=== PATIENT | male | born 1945 | race Caucasian/White ===

== ENCOUNTER → 2020-10-26 | Outpatient (CLI) | payer MEDICARE, OTHER ==
--- NOTE | 2020-10-26 11:57 | RAD ---
EXAM: Left lower extremity venous Doppler sonogram. HISTORY: Pain and swelling. Dog scratch. TECHNIQUE: Sol scale and color Doppler sonographic evaluation of the left lower extremity veins with spectral waveform analysis was performed. FINDINGS: There is normal color flow, normal compressibility and there are normal spectral waveforms in the common femoral, superficial femoral, popliteal, posterior tibial and greater saphenous veins. IMPRESSION: No Doppler evidence of lower extremity deep venous thrombosis. Electronically signed by: Cate Amaral MD (10/26/2020 11:55 AM) [id number]
== END ==
LOC: US 11:20
PROVIDERS: ATTEND Family Medicine
DX: S71.152A Open bite, left thigh, initial encounter (principal); I82.412 Acute embolism and thrombosis of left femoral vein; W54.0XXA Bitten by dog, initial encounter; Y93.89 Activity, other specified; Y92.89 Other specified places as the place of occurrence of the external cause; Y99.8 Other external cause status
CPT/HCPCS: 93971

== ENCOUNTER → 2021-03-20 | Outpatient (CLI) | payer MEDICARE, OTHER ==
--- NOTE | 2021-03-20 14:39 | RAD ---
EXAM: Lumbar spine CT without contrast. HISTORY: Pain. TECHNIQUE: Computed tomographic images of the lumbar spine were obtained without contrast. Multiplana r reformatting was performed. *One or more of the following individualized dose reduction techniques were utilized for this examina tion: 1. Automated exposure control. 2. Adjustment of the mA and/or kV according to patient size. 3. Use of iterative reconstruction technique. COMPARISON: None. FINDINGS: There is 4 mm grade 1 anterolisthesis of L5 on S1. There is mild lumbar hyperlordosis. Ther e is multilevel endplate remodeling. There are bridging and partially bridging anterior osteophytes t hroughout the thoracic and lumbar levels, the appearance of which favors diffuse idiopathic skeletal hyperostosis. There is multilevel facet arthropathy. There is no suspicious lytic or sclerotic osseou s lesion. There is no acute or subacute fracture. There is a patulous distal esophagus or tiny hiatal hernia. There is no pulmonary infiltrate or pleur al effusion on the [id number]-eu-nrjz. There is a 3.6 cm simple cyst within the left kidney. There are scl erotic lesions within the right iliac bone measuring up to 1.0 cm. There is also a 4 mm sclerotic les ion within the left iliac bone. There is degenerative subchondral sclerosis and spurring involving th e sacroiliac joints. There is a small sclerotic lesion within the left aspect of the L1 vertebral bod y and left posterior aspect of the L4 vertebral body. At L1-L2, there is a disc bulge and endplate remodeling. There is mild right facet arthropathy. There is mild right foraminal stenosis. At L2-L3, there is a disc bulge. There is mild left facet arthropathy. There is mild left foraminal s tenosis. At L3-L4, there is a disc bulge. There is epvr-ao-[id number] bilateral facet arthropathy. There is mild bilateral foraminal stenosis. At L4-L5, there is a disc bulge and endplate remodeling. There is severe right greater than left face t arthropathy. There is mild left greater than right foraminal stenosis. There is mild central canal stenosis. At L5-S1, there is a disc bulge and endplate remodeling. There is severe right facet arthropathy. The re is grade 1 anterolisthesis. There is no stenosis. IMPRESSION: 1. Multilevel degenerative change involving the lumbar spine, described in detail above. This is asso ciated with mild foraminal and central canal stenosis at the aforementioned levels. No severe stenosi s is seen. There is no acute finding. 2. Bridging and partially bridging bulky anterior osteophytes at the lower thoracic and lumbar levels , the appearance of which favors diffuse idiopathic skeletal hyperostosis. 3. Grade 1 anterolisthesis of L5 on S1. 4. Multiple small sclerotic lesions within the vertebral bodies and bony pelvis. If there is no histo ry of primary malignancy, these are likely bone islands. There is a history of primary malignancy, os seous metastatic disease is not excluded. Electronically signed by: Cate Amaral MD (03/20/2021 2:36 PM) [facility]
== END ==
LOC: CT 13:35
PROVIDERS: ATTEND Family Medicine
DX: M47.817 Spondylosis without myelopathy or radiculopathy, lumbosacral region (principal); M51.27 Other intervertebral disc displacement, lumbosacral region; M43.17 Spondylolisthesis, lumbosacral region; M25.78 Osteophyte, vertebrae; M48.061 Spinal stenosis, lumbar region without neurogenic claudication
CPT/HCPCS: 72131

== ENCOUNTER → 2021-05-23 | Outpatient (CLI) | payer MEDICARE, OTHER ==
--- NOTE | 2021-05-24 08:42 | RAD ---
SITE ID: [id number] EXAMINATION: NM BONE SCAN WHOLE BODY - Whole body bone scan. Technique: After the intravenous administration of 26 mCi of Technetium 99m MDP, whole body delayed p hase bone scan images were obtained with lateral views of the head and neck and the chest regions. Indication: 76 years Male bone lesions seen on CT scan of the lumbar spine Findings: There is a pattern of increased radiotracer uptake seen in the spine at multiple levels within the ryder mbar spine region with the mild to moderate intensity. When correlating catheter the areas of uptake with the CT scan it is most likely correlating with degenerative activity in not particularly related to the small sclerotic lesion seen at the L1 level. There is also mild to moderate increased activit y around the sternum, shoulders, and cervical spine probably degenerative. There is also symmetric mi ld increased activity around the proximal tibia bilaterally. No intense foci of increased uptake is seen in a pattern to suggest underlying neoplasm or metastatic disease. Symmetric activity in the kidneys and normal activity in bladder seen. IMPRESSION: Pattern of uptake is in favor of degenerative etiology for bone lesion seen on CT scan. Electronically signed by: Joe Connor MD (05/24/2021 8:40 AM) [id number]
== END ==
LOC: NM 10:10
PROVIDERS: ATTEND Family Medicine
DX: C79.51 Secondary malignant neoplasm of bone (principal)
CPT/HCPCS: 78306; A9503

== ENCOUNTER 2021-07-06 17:17 | Emergency (ER) | payer MEDICARE, OTHER ==
[~2021-07-06] VITALS: Ht 167.6 cm; Wt 67.8 kg
--- NOTE | 2021-07-06 17:42 | PHYS DOC ---
General Adult EDM: Chief Complaint: MECHANICAL FALL HPI: HPI: Patient is a 76-year-old male who presents to the emergency department with family for complaints of a fall that occurred on Friday. Patient denies hitting his head, loss of consciousness, blood thinner use. Patient does report that he hit his left upper back on a lamp. Patient is also complaining of a productive cough x2 weeks. He reports that he has a history of asthma and produces excessive mucus and a cough can be chronic for him. Daughter is concerned because she states that he is not acting normally. She but she cannot expand on how he is not acting normally. She reports that he is answering questions appropriately for his baseline. Patient denies any current pain, shortness of breath, chest pain, fevers. (MESSI DONG APRN) Review of Systems: Review of Systems: Constitutional: negative unless reported in HPI Eyes: negative unless reported in HPI HENT: negative unless reported in HPI Respiratory: negative unless reported in HPI Cardiovascular: negative unless reported in HPI GI: negative unless reported in HPI : negative unless reported in HPI Musculoskeletal: negative unless reported in HPI Integument: negative unless reported in HPI Neurologic: negative unless reported in HPI Endocrine: negative unless reported in HPI Lymphatic: negative unless reported in HPI Psychiatric: negative unless reported in HPI (MESSI DONG APRN) Physical Exam: PE: Constitutional: Well developed, well nourished, no acute distress, non-toxic appearance. [] HENT: Normocephalic, atraumatic, bilateral external ears normal, oropharynx moist, no oral exudates, nose normal. [] Eyes: PERRL, EOMI, conjunctiva normal, no discharge. [] Neck: Normal range of motion, no bony spinal tenderness, supple, no stridor. [] Cardiovascular:Heart rate tachycardic rhythm, no murmur [] Lungs & Thorax: Bilateral breath sounds clear to auscultation [] Abdomen: Bowel sounds normal, soft, no tenderness, no masses, no pulsatile masses. [] Skin: Warm, dry, no erythema, no rash. [] Back: No bony spinal tenderness, no shunt, ecchymosis noted to left upper thoracic region of back Extremities: No tenderness, no cyanosis, no clubbing, ROM intact, no edema. [] Neurologic: Alert and oriented X 3, normal motor function, normal sensory function, no focal deficits noted. [] Psychologic: Affect normal, judgement normal, mood normal. [] (MESSI DONG APRN) Current Patient Data: Labs: Laboratory Tests Test 07/06/21 18:16 White Blood Count 14.6 x10^3/uL Red Blood Count 5.15 x10^6/uL Hemoglobin 16.1 g/dL Hematocrit 48.2 % Mean Corpuscular Volume 94 fL Mean Corpuscular Hemoglobin 31 pg Mean Corpuscular Hemoglobin Concent 33 g/dL Red Cell Distribution Width 13.8 % Platelet Count 314 x10^3/uL Neutrophils (%) (Auto) 85 % Lymphocytes (%) (Auto) 9 % Monocytes (%) (Auto) 5 % Eosinophils (%) (Auto) 0 % Basophils (%) (Auto) 0 % Neutrophils # (Auto) 12.4 x10^3uL Lymphocytes # (Auto) 1.3 x10^3/uL Monocytes # (Auto) 0.8 x10^3/uL Eosinophils # (Auto) 0.0 x10^3/uL Basophils # (Auto) 0.0 x10^3/uL Sodium Level 137 mmol/L Potassium Level 3.6 mmol/L Chloride Level 94 mmol/L Carbon Dioxide Level 30 mmol/L Anion Gap 13 Blood Urea Nitrogen 17 mg/dL Creatinine 1.5 mg/dL Estimated GFR (Cockcroft-Gault) 45.6 BUN/Creatinine Ratio 11 Glucose Level 188 mg/dL Calcium Level 9.4 mg/dL Total Bilirubin 0.9 mg/dL Aspartate Amino Transf (AST/SGOT) 50 U/L Alanine Aminotransferase (ALT/SGPT) 65 U/L Alkaline Phosphatase 105 U/L Troponin I High Sensitivity 10 ng/L Total Protein 8.1 g/dL Albumin 3.6 g/dL Albumin/Globulin Ratio 0.8 Influenza Type A (Rapid) Negative Influenza Type B (Rapid) Negative SARS-CoV-2 Antigen (Rapid) Negative Current Medications Medications (Trade) Dose Ordered Sig/Troy Route PRN Reason Start Time Stop Time Status Last Admin Dose Admin Sodium Chloride 1,000 ml @ 1,000 mls/hr 1X ONCE IV 07/06/21 17:45 07/06/21 18:44 DC 07/06/21 17:45 (MESSI DONG APRN) EKG: EKG: EKG performed by ER staff at 1811 shows sinus tach with a rate of 97 with a bundle branch block, QTC is 449, no STEMI read by Dr. Abdullahi at 1814 [] (MESSI DONG TRANSITIONAL CARE LIAISON) Radiology/Procedures: Radiology/Procedures: []PROCEDURE: THORACIC SPINE 3V Study: XR THORACIC SPINE 3VIEWS Indication: Fall. Comparison: None. Findings: Flowing prevertebral osteophytes throughout the thoracic spine as well as seen to involve the cervical and partially imaged lumbar spine. Smooth thoracic kyphosis which is mildly exaggerated. No appreciable listhesis. No concerning vertebral body height loss. Limited evaluation of the posterior elements on account of osseous overlap. The lungs are incompletely evaluated but no focal airspace abnormality is identified or apical pneumothorax. Impression: 1. No radiographic evidence for an acute thoracic spine fracture. If there is pinpoint tenderness CT or MRI would be more sensitive. 2. Diffuse idiopathic skeletal hyperostosis. Mild exaggeration of thoracic kyphosis. Electronically signed by: KWAME DOUGLAS MD (07/06/2021 6:20 PM) [facility] DICTATED AND SIGNED BY: KWAME DOUGLAS MD DATE: 07/06/211816 CC: RADHA CEVALLOS MD; SAM ABDULLAHI MD; MESSI DONG APRN ~MTH0 0 REASON: fall PROCEDURE: CT HEAD AND CERVICAL SPINE WO STUDY: CT head and cervical spine without contrast INDICATION: Fall. COMPARISON: None. TECHNIQUE: Axial CT imaging through the head and cervical spine without the use of intravenous contrast. Sagittal and coronal reformats were obtained. One or more of the following individualized dose reduction techniques were utilized for this examination: 1. Automated exposure control 2. Adjustment of the mA and/or kV according to patient size 3. Use of iterative reconstruction technique. FINDINGS: CT head: No acute intracranial hemorrhage. Sol-white matter differentiation is maintained. No localized mass effect, midline shift or hydrocephalus. Intact calvarium. Normally aerated mastoid air cells and partially imaged paranasal sinuses. CT cervical spine: Bulky flowing prevertebral ossification throughout the cervical spine and continuing along the visualized thoracic spine. The only level with discontinuity is at C2-C3. There are no findings that would indicate this discontinuity to be acute. No abnormal widening of the C2-C3 disc space or listhesis. Widening at the anterior aspect of the C5-C6 disc space however with intact prevertebral osteophytes and no localized edema/hemorrhage of the prevertebral soft tissues. Several levels exhibit posterior element fusion mainly at the upper thoracic spine but also partly at C7-T1. Mild posterior longitudinal ligament mineralization from C2 through C4. Background mostly mild facet arthrosis greatest on the left at C2-C3. Multilevel uncovertebral joint hypertrophy. Disc osteophyte complex at C3-C4. Osseous neur al foraminal narrowing is mild to borderline moderate such as on the right at C5-C6 and on the right at C2-C3. Central canal stenosis favored greatest at C3- C4 more so than C4-C5 but not fully evaluated. Considering the absence of intrathecal contrast this does not appear to be severe. Groundglass and partly nodular densities at the upper lungs. No apical pneumothorax. IMPRESSION: CT head: 1. No acute intracranial abnormality by CT. CT cervical spine: 1. Rigid cervical and visualized thoracic spine in the setting of diffuse idiopathic skeletal hyperostosis as described in the body of the report. This configuration places the patient at risk for fractures from mild trauma however no fracture is identified or traumatic malalignment. No paraspinous edema/ hematoma to indicate an occult fracture. 2. Multilevel degenerative changes with mostly mild and moderate osseous neural foraminal stenosis. Central canal stenosis favored greatest at C3-C4 but this does not appear to be severe. 3. Faint groundglass and partly nodular infiltrates at the upper lungs. The appearance is nonspecific and could be a mild active infectious or inflammatory process. Electronically signed by: KWAME DOUGLAS MD (07/06/2021 6:17 PM) [facility] DICTATED AND SIGNED BY: KWAME DOUGLAS MD DATE: 07/06/211803 CC: RADHA CEVALLOS MD; SAM ABDULLAHI MD; MESSI DONG TRANSITIONAL CARE LIAISON ~MTH0 0 PROCEDURE: PORTABLE CHEST 1V Exam: Chest one view INDICATION: Fall TECHNIQUE: Frontal view of the chest Comparisons: None FINDINGS: The cardiomediastinal silhouette and pulmonary vessels are within normal limits. Subtle patchy bilateral airspace disease. No pleural effusion. IMPRESSION: Patchy bibasilar airspace disease favored infectious or inflammatory in etiology. Electronically signed by: Faith Clark MD (07/06/2021 6:08 PM) [facility] DICTATED AND SIGNED BY: FAITH CLARK MD DATE: 07/06/21 180 CC: RADHA CEVALLOS MD; MESSI DONG APRN ~MTH0 0 (MESSI DONG APRN) Heart Score: C/O Chest Pain: No Risk Factors: Risk Factors: DM, Current or recent (<one month) smoker, HTN, HLP, family history of CAD, obesity. Risk Scores: Score 0 - 3: 2.5% MACE over next 6 weeks - Discharge Home Score 4 - 6: 20.3% MACE over next 6 weeks - Admit for Clinical Observation Score 7 - 10: 72.7% MACE over next 6 weeks - Early Invasive Strategies (MESSI DONG APRN) Course & Med Decision Making: Course & Med Decision Making Pertinent Labs and Imaging studies reviewed. (See chart for details) [] Patient presents to the emergency department for multiple complaints. He reports that he fell on Friday. He did not hit his head, no loss of consciousness, no blood thinner use. Patient denies any pain from the fall but reports hitting his left upper back and he does have a bruise to that area. Family is also concerned that patient has had a productive cough x2 weeks. Patient reports he has a history of asthma and excessive mucus production and occasionally does have a cough. Niece states that patient is not acting appropriately but cannot expand on how the patient is not acting appropriately and states that how he is communicating with nursing staff currently is appropriate for him, patient is alert and oriented and answering questions appropriately. When asking his niece how she thought he was confused she states because he said he hit his back on a tree but fell in his bedroom, patient reports that he was telling his niece that he hit his back on a tree lamp not an actual tree. Work-up in the ER consisted of blood work, EKG, chest x-ray to rule out pneumonia, CT imaging of head and neck due to the fall and imaging of thoracic spine due to ecchymosis. CT imaging of head and neck showed no acute findings. Thoracic spine x-ray showed no acute findings. Patient's chest x-ray did not show any pneumonia. Patient did have leukocytosis. Patient mild elevation in his creatinine, he was treated with IV fluids. Urinalysis did show urinary tract infection. Following treatment in the emergency department, patient's vital signs are stable. He is in no acute respiratory distress and he is not hypoxic or requiring any supplemental oxygen. Patient does have a history of reversible asthma he states. He states that he used to take inhalers but does not have any at home. Patient will be discharged home with an antibiotic to treat his pneumonia and albuterol inhaler. Patient is advised to follow-up with his primary care provider soon as possible. I discussed with patient all findings and diagnostic testing as well as the need to follow-up with PCP for further evaluation and treatment or return to the ER if any new or worsening symptoms. Strict return precautions were also discussed at length. Patient voiced understanding and agreement with the plan. Patient is hemodynamically stable at the time of disposition. (MESSI DONG APRN) Dragon Disclaimer: Dragon Disclaimer: This electronic medical record was generated, in whole or in part, using a voice recognition dictation system. (MESSI DONG APRN) Departure Departure: Impression: Primary Impression: Pneumonia Qualified Codes: J18.9 - Pneumonia, unspecified organism Additional Impression: Urinary tract infection Qualified Codes: N30.00 - Acute cystitis without hematuria Disposition: HOME / SELF CARE / HOMELESS Condition: GOOD Referrals: RADHA CEVALLOS MD (PCP) Patient Instructions: Pneumonia, Adult, Urinary Tract Infection Additional Instructions: You were seen in the emergency department for a cough and a fall. Imaging of your head neck and spine showed no acute findings. Please see the handout of the scan of your head and neck because you will need to follow-up with your primary care provider about these findings. Your urinalysis did show a urinary tract infection. Your chest x-ray did show pneumonia and this will be treated with an antibiotic, please start and finish the antibiotic completely. You can take anti-inflammatory medications for your pain. Your blood work was mostly unremarkable although you were slightly dehydrated so make sure that you are increasing your fluids at home. You are also being discharged home with an albuterol inhaler that you can use when you feel short of breath. I would purchase a pulse oximeter at the pharmacy and monitor your oxygen saturation levels at home and return to the emergency department if they drop below 90%. Return to the emergency department if you develop shortness of breath, chest pain, high fevers refractory to treatment, intractable nausea or vomiting, any additional falls or injuries, weakness, speech problems, inability to walk, confusion. Scripts Levofloxacin (LEVOFLOXACIN) 750 Mg Tablet 1 TAB PO DAILY for pneumonia for 5 Days, #5 TAB 0 Refills Prov: MESSI DONG APRN 07/06/21 Albuterol Sulfate (PROAIR HFA INHALER) 8.5 Gm Hfa.aer.ad 2 PUFF IH PRN Q4-6HRS PRN for wheezing for 21 Days, #1 INHALER 0 Refills as needed for wheezing Prov: MESSI DONG APRN 07/06/21 Attending Signature Attending Signature I have participated in the care of this patient and I have reviewed and agree with all pertinent clinical information above including history, exam, and recommendations. (SAM ABDULLAHI MD) MESSI DONG APRN Jul 06, 2021 17:42 SAM ABDULLAHI MD Jul 06, 2021 21:55
[2021-07-06] MEDS ORDERED: IV NORMAL SALINE 1,000ML 1,000 ML IV ONE (17:45)
--- NOTE | 2021-07-06 18:11 | RAD ---
Exam: Chest one view INDICATION: Fall TECHNIQUE: Frontal view of the chest Comparisons: None FINDINGS: The cardiomediastinal silhouette and pulmonary vessels are within normal limits. Subtle patchy bilateral airspace disease. No pleural effusion. IMPRESSION: Patchy bibasilar airspace disease favored infectious or inflammatory in etiology. Electronically signed by: Faith Hair MD (07/06/2021 6:08 PM) [facility]
--- NOTE | 2021-07-06 18:18 | EKG ---
[address] [address] Test Date: 2021-07-06 Test Time: 18:11:17 Pat Name: ANNEL BONDS Department: Room: Gender: M Internal Salesperson: BAYRON : 1945 Requested By: MESSI DONG Order Number: [id number] Reading MD: Davion Foy Measurements Intervals [place] Rate: 97 P: 64 ID: [id number] QRS: 87 QRSD: 92 T: 39 QT: 350 QTc: 449 Interpretive Statements SINUS RHYTHM INCOMPLETE RIGHT BUNDLE BRANCH BLOCK Electronically Signed On 07-08-2021 9:26:11 OPERATIONS DIRECTOR by Davion Foy
--- NOTE | 2021-07-06 18:19 | RAD ---
STUDY: CT head and cervical spine without contrast INDICATION: Fall. COMPARISON: None. TECHNIQUE: Axial CT imaging through the head and cervical spine without the use of intravenous contra st. Sagittal and coronal reformats were obtained. One or more of the following individualized dose reduction techniques were utilized for this examinat ion: 1. Automated exposure control 2. Adjustment of the mA and/or kV according to patient size 3. Use of iterative reconstruction technique. FINDINGS: CT head: No acute intracranial hemorrhage. Sol-white matter differentiation is maintained. No localized mass effect, midline shift or hydrocephalus. Intact calvarium. Normally aerated mastoid air cells and partially imaged paranasal sinuses. CT cervical spine: Bulky flowing prevertebral ossification throughout the cervical spine and continuing along the visual ized thoracic spine. The only level with discontinuity is at C2-C3. There are no findings that would indicate this discontinuity to be acute. No abnormal widening of the C2-C3 disc space or listhesis. W idening at the anterior aspect of the C5-C6 disc space however with intact prevertebral osteophytes a nd no localized edema/hemorrhage of the prevertebral soft tissues. Several levels exhibit posterior e lement fusion mainly at the upper thoracic spine but also partly at C7-T1. Mild posterior longitudina l ligament mineralization from C2 through C4. Background mostly mild facet arthrosis greatest on the left at C2-C3. Multilevel uncovertebral joint hypertrophy. Disc osteophyte complex at C3-C4. Osseous neural foraminal narrowing is mild to borderli ne moderate such as on the right at C5-C6 and on the right at C2-C3. Central canal stenosis favored g reatest at C3-C4 more so than C4-C5 but not fully evaluated. Considering the absence of intrathecal c ontrast this does not appear to be severe. Groundglass and partly nodular densities at the upper lungs. No apical pneumothorax. IMPRESSION: CT head: 1. No acute intracranial abnormality by CT. CT cervical spine: 1. Rigid cervical and visualized thoracic spine in the setting of diffuse idiopathic skeletal hypero stosis as described in the body of the report. This configuration places the patient at risk for frac tures from mild trauma however no fracture is identified or traumatic malalignment. No paraspinous ed taryn/hematoma to indicate an occult fracture. 2. Multilevel degenerative changes with mostly mild and moderate osseous neural foraminal stenosis. Central canal stenosis favored greatest at C3-C4 but this does not appear to be severe. 3. Faint groundglass and partly nodular infiltrates at the upper lungs. The appearance is nonspecifi c and could be a mild active infectious or inflammatory process. Electronically signed by: KWAME DOUGLAS MD (07/06/2021 6:17 PM) [facility]
--- NOTE | 2021-07-06 18:23 | RAD ---
Study: XR THORACIC SPINE 3VIEWS Indication: Fall. Comparison: None. Findings: Flowing prevertebral osteophytes throughout the thoracic spine as well as seen to involve the cervica l and partially imaged lumbar spine. Smooth thoracic kyphosis which is mildly exaggerated. No appreci able listhesis. No concerning vertebral body height loss. Limited evaluation of the posterior element s on account of osseous overlap. The lungs are incompletely evaluated but no focal airspace abnormality is identified or apical pneumo thorax. Impression: 1. No radiographic evidence for an acute thoracic spine fracture. If there is pinpoint tenderness CT or MRI would be more sensitive. 2. Diffuse idiopathic skeletal hyperostosis. Mild exaggeration of thoracic kyphosis. Electronically signed by: KWAME DOUGLAS MD (07/06/2021 6:20 PM) [facility]
[2021-07-06 18:28] VITALS: BP 120/82
[2021-07-06 18:53] LABS: BASO % 0 % (0-3); EOS % 0 % (0-3); HEMATOCRIT 48.2 % (39.0-53.0); HEMOGLOBIN 16.1 g/dL (13.0-17.5); LYMPH # 1.3 x10^3/uL (1.0-4.8); LYMPH % 9 % (24-48); MEAN CORPUSCULAR HEMOGLOBIN 31 pg (25-35); MEAN CORPUSCULAR HGB CONC 33 g/dL (31-37); MEAN CORPUSCULAR VOLUME 94 fL (79-100); MONO # 0.8 x10^3/uL (0.0-1.1); MONO % 5 % (0-9); NEUT # 12.4 x10^3uL (1.8-7.7); NEUT % 85 % (31-73); PLATELET COUNT 314 x10^3/uL (140-400); RED BLOOD COUNT 5.15 x10^6/uL (4.30-5.70); RED CELL DISTRIBUTION WIDTH 13.8 % (11.5-14.5); WHITE BLOOD COUNT 14.6 x10^3/uL (4.0-11.0)
[2021-07-06 18:55] LABS: CALCIUM 9.4 mg/dL (8.5-10.1); CREATININE 1.5 mg/dL (0.7-1.3); GFR 45.6; POTASSIUM 3.6 mmol/L (3.5-5.1)
[2021-07-06 19:01] LABS: ALBUMIN 3.6 g/dL (3.4-5.0); ALBUMIN/GLOBULIN RATIO 0.8 (1.0-1.7); TOTAL BILIRUBIN 0.9 mg/dL (0.2-1.0); TOTAL PROTEIN 8.1 g/dL (6.4-8.2)
[2021-07-06 19:07] LABS: INFLUENZA A PATIENT NEGATIVE (NEGATIVE); INFLUENZA B PATIENT NEGATIVE (NEGATIVE)
[2021-07-06 19:23] LABS: BILIRUBIN,URINE MOD (NEG); CLARITY,URINE CLOUDY; COLOR,URINE YELLOW; GLUCOSE,URINE 100 mg/dL (NEG)
[2021-07-06] MEDS ORDERED: LEVO750T5 PO (19:23)
[2021-07-06] MEDS ORDERED: ALBU2.5V8 IH (19:23)
[2021-07-06 19:24] LABS: BACTERIA,URINE MOD /HPF (0-FEW); GRANULAR CASTS,URINE FEW /HPF; NITRITE,URINE POS (NEG); SQUAMOUS EPITHELIAL CELL,UR FEW /LPF
== END 2021-07-06 19:47 | disposition home or self-care (01) ==
LOC: ER 17:17
DX: S20.222A Contusion of left back wall of thorax, initial encounter (principal); J18.9 Pneumonia, unspecified organism; N30.00 Acute cystitis without hematuria; W17.89XA Other fall from one level to another, initial encounter; Y93.89 Activity, other specified; Y92.89 Other specified places as the place of occurrence of the external cause; Y99.8 Other external cause status
CPT/HCPCS: 36415; 70450; 71045; 72072; 72125; 80053; 81001; 84484; 85025; 87086; 87428; 93005; 96360; 99285; J7030

== ENCOUNTER → 2021-11-01 | Outpatient (CLI) | payer MEDICARE, OTHER ==
[~2021-11-01] MED LIST: ALBU2.5V8 IH; LEVO750T5 PO
[2021-11-01 14:03] LABS: BASO % 0 % (0-3); EOS # 0.2 x10^3/uL (0.0-0.7); EOS % 3 % (0-3); HEMATOCRIT 46.6 % (39.0-53.0); HEMOGLOBIN 15.7 g/dL (13.0-17.5); LYMPH # 1.5 x10^3/uL (1.0-4.8); LYMPH % 24 % (24-48); MEAN CORPUSCULAR HEMOGLOBIN 31 pg (25-35); MEAN CORPUSCULAR HGB CONC 34 g/dL (31-37); MEAN CORPUSCULAR VOLUME 92 fL (79-100); MONO # 0.3 x10^3/uL (0.0-1.1); MONO % 5 % (0-9); NEUT # 4.2 x10^3uL (1.8-7.7); NEUT % 68 % (31-73); PLATELET COUNT 112 x10^3/uL (140-400); RED BLOOD COUNT 5.07 x10^6/uL (4.30-5.70); RED CELL DISTRIBUTION WIDTH 13.6 % (11.5-14.5); WHITE BLOOD COUNT 6.2 x10^3/uL (4.0-11.0)
[2021-11-01 14:12] LABS: ALBUMIN 4.2 g/dL (3.4-5.0); ALBUMIN/GLOBULIN RATIO 1.4 (1.0-1.7); CALCIUM 9.3 mg/dL (8.5-10.1); CREATININE 1.1 mg/dL (0.7-1.3); GFR 65.3; POTASSIUM 4.6 mmol/L (3.5-5.1); TOTAL BILIRUBIN 2.9 mg/dL (0.2-1.0); TOTAL PROTEIN 7.2 g/dL (6.4-8.2)
[2021-11-01 14:19] LABS: BACTERIA,URINE 0 /HPF (0-FEW); CLARITY,URINE CLEAR; COLOR,URINE YELLOW; GLUCOSE,URINE NEG (NEG); NITRITE,URINE NEG (NEG); SQUAMOUS EPITHELIAL CELL,UR FEW /LPF; UROBILINOGEN,URINE 0.2 mg/dL (0.2 mg/dL)
[2021-11-02 05:09] LABS: HEMOGLOBIN A1C 6.1 % (4.8-5.6)
[2021-11-02 19:59] LABS: FREE T4 1.18 ng/dL (0.76-1.46); THYROID STIM HORMONE (TSH) 2.727 uIU/mL (0.358-3.740)
== END ==
LOC: LAB 12:08
PROVIDERS: ATTEND Family Medicine
DX: E78.5 Hyperlipidemia, unspecified (principal); I10 Essential (primary) hypertension; E78.01 Familial hypercholesterolemia; R73.9 Hyperglycemia, unspecified; D68.9 Coagulation defect, unspecified
CPT/HCPCS: 36415; 80053; 81001; 83036; 84439; 84443; 85025; 85610; 85730